=== PATIENT | male | born 1965 | race Caucasian/White ===

== ENCOUNTER 2017-08-09 11:34 | Outpatient (CLI) ==
[2016-06-19 08:21] VITALS: BMI 29.5
[2017-08-09 11:48] LABS: HEMATOCRIT 41.9 % (42.0-52.0); HEMOGLOBIN 13.7 g/dl (14.0-18.0); MEAN CORPUSCULAR HGB CONC 32.7 (31.8-35.4); MEAN CORPUSCULAR VOLUME 88.8 fl (80.0-94.0); RED BLOOD COUNT 4.72 10^6/ul (4.70-6.10); WHITE BLOOD COUNT 7.98 K/ul (4.2-10.2)
[2017-08-09 12:04] LABS: BUN/CREATININE RATIO 8.57; CALCIUM 9.9 mg/dL (8.2-10.2); CREATININE 1.05 mg/dL (0.60-1.10)
[2017-08-10 15:15] LABS: URINE CREATININE 184.6 mg/dL (Not Estab.); URINE MALB/CR RATIO 47.7 mg/g creat (0.0-30.0)
== END 2017-08-09 11:35 | disposition home or self-care (01) ==
LOC: LAB 11:34
PROVIDERS: ATTEND Internal Medicine Nephrology
DX: N18.1 Chronic kidney disease, stage 1 (principal)
CPT/HCPCS: 36415; 80048; 82043; 85027

== ENCOUNTER 2017-09-16 16:38 | Emergency (ER) ==
[2017-09-16 16:49] VITALS: BP 164/88; TEMP 96.5; BMI 33.3
--- NOTE | 2017-09-16 17:30 | CT ---
EXAM: CT cervical spine without contrast HISTORY: Fall COMPARISON: None TECHNIQUE: CT cervical spine performed without intravenous contrast. Coronal and sagittal reformatt ed images obtained. FINDINGS: Vertebral bodies normal in height. No fracture. No subluxation. Bulky multilevel anteri or osteophyte formation. Multilevel facet and uncovertebral hypertrophy. Degenerative changes cause varying degrees of mild and moderate multilevel central canal and mild moderate multilevel bilateral neural foraminal narrowing. Prevertebral soft tissues appear normal. IMPRESSION: 1. No fracture or subluxation. 2. Chronic discogenic degenerative disease and facet arthrosis.
--- NOTE | 2017-09-16 17:59 | CT ---
EXAM: CT lumbar spine without intravenous contrast 09/16/2017. Sagittal and coronal reformatted mary ges obtained HISTORY: Pain COMPARISON: 10/22/2013 FINDINGS: Normal anatomic alignment is maintained. Vertebral bodies appear intact without fracture. The facet joints align normally. There is no fracture or subluxation at any level. There is a large posterior disc bulge/osteophyte complex at L3-L4. This causes triangulation of the s flavio canal. There is moderate right-sided neural foraminal stenosis at L3-L4. Posterior disc bulge causes triangulation of the spinal canal at L4-L5 with mild bilateral neural for aminal stenosis. There is prominent facet arthropathy at L5-S1. This causes mild right neural foraminal stenosis. IMPRESSION: 1. Normal anatomic alignment. There is no acute osseous abnormality. 2. Chronic degenerative disc disease. Chronic hypertrophic facet arthropathy. 3. Multilevel narrowing of the spinal canal and neural foramen as described above. Outpatient MRI c ould be obtained for further evaluation if clinically indicated.
--- NOTE | 2017-09-16 18:10 | CT ---
EXAM: CT thoracic spine without intravenous contrast 09/16/2017. Sagittal and coronal reformatted i mages obtained HISTORY: Fall COMPARISON: None. FINDINGS: Normal anatomic alignment is maintained within the thoracic spine. Vertebral bodies appea r intact. The facet joints align normally. There is no evidence of fracture or subluxation at any level. Multilevel chronic degenerative endplate change. There is no bony encroachment upon the spinal canal. IMPRESSION: No acute osseous abnormality of the thoracic spine.
--- NOTE | 2017-09-16 18:13 | ED.PDOC ---
General ED Provider: Dr. SHONA CANDELARIA Chief Complaint: Fall Stated Complaint: FALL Time Seen by Physician: 16:44 (SEEN WITH BROCK ON ARRIVAL AND LATER ON 6:10) Mode of Arrival: Walk-In Information Source: Patient, Family Exam Limitations: No limitations Primary Care Provider: VIRGINIA CANNON Nursing and Triage Documentation Reviewed and Agree: Yes Reviewed sepsis parameters & appropriate labs ordered?: Yes System Inflammatory Response Syndrome: Not Applicable Sepsis Protocol: For patient's 13 years and over: Temp is 96.8 and below OR 101 and greater Pulse >90 BPM Resp >20/minute Acutely Altered Mental Status Are patient's symptoms suggestive of a new infection, such as: -Pneumonia -Skin, Soft Tissue -Endocarditis -UTI -Bone, Joint Infection -Implantable Device -Acute Abdominal Infection -Wound Infection -Meningitis -Blood Stream Catheter Infection -Unknown System Inflammatory Response Syndrome: Not Applicable Trauma/Injury Complaint Exam - Trauma Complaint/Exam Location of Pain or Injury: Reports: Neck, Back. Denies: Head, Scalp, Face Mechanism of Injury: Reports: Fall Onset/Duration: 5HR Symptoms Are: Still present Timing of Treatment: Hours Initial Severity: Moderate Current Severity: Mild Character: Reports: Aching Aggravating: Reports: None Alleviating: Reports: Rest Associated Signs and Symptoms: Denies: LOC, Confusion, Memory loss, Lethargy, Vomiting, Bleeding, Bruising, Swelling, Extremity disuse, Painful respiration, Hoarseness, Dysphagia, Hemoptysis, Significant blood loss Penetrating Injury Risk Factors: Reports: None Nexus Low Risk Criteria: No post-midline CS tender, No evidence of intoxicat., No Altered LOC, No focal neuro deficit, No distracting injuries Glascow Coma Scale (see protocol): 15 Differential Diagnoses: Fracture, Sprain, Strain Review of Systems - Review Of Systems Constitutional: Reports: No symptoms Eyes: Reports: No symptoms Ears, Nose, Mouth, Throat: Reports: No symptoms Respiratory: Reports: No symptoms Cardiac: Reports: No symptoms GI: Reports: No symptoms : Reports: No symptoms Musculoskeletal: Reports: Neck pain Skin: Reports: No symptoms Neurological: Reports: No symptoms Endocrine: Reports: No symptoms Hematologic/Lymphatic: Reports: No symptoms All Other Systems: Reviewed and Negative Past Medical History - Past Medical History Previously Healthy: Yes Endocrine: Reports: None Cardiovascular: Reports: None Respiratory: Reports: None Hematological: Reports: None Gastrointestinal: Reports: None Genitourinary: Reports: None Neuro/Psych: Reports: None Musculoskeletal: Reports: None Cancer: Reports: None - Surgical History General Surgical History: Reports: None - Family History Family History: Reports: None - Social History Smoking Status: Never smoker, Chews tobacco Hx Substance Use: No Alcohol Screening: None - Immunizations Tetanus Shot up to Date: Yes Physical Exam - Physical Exam Appearance: Well-appearing, No pain distress, Well-nourished Eyes: SUNSHINE, EOMI, Conjunctiva clear ENT: Ears normal, Nose normal, Oropharynx normal Respiratory: Airway patent, Breath sounds clear, Breath sounds equal, Respirations nonlabored Cardiovascular: RRR, Pulses normal, No rub, No murmur GI/: Soft, Nontender, No masses, Bowel sounds normal, No Organomegaly Musculoskeletal: Normal strength, ROM intact, No edema, No calf tenderness Skin: Warm, Dry, Normal color Neurological: Sensation intact, Motor intact, Reflexes intact, Cranial nerves intact, Alert, Oriented Psychiatric: Affect appropriate, Mood appropriate Interpretation - Radiology Interpretation Radiology Interpretation By: Radiologist Radiology Results: No acute changes Critical Care Note - Critical Care Note Total Time (mins): 0 Course - Course Orders, Labs, Meds: Orders Category Date Time Status CT CERVICAL SPINE W/O CONTRAST Stat RADS 09/16/17 16:[address] LUMBAR SPINE W/O CONTRAST Stat RADS 09/16/17 16:[address] THORACIC SPINE W/O CONTRAST Stat RADS 09/16/17 16:50 Completed Vital Signs: Temp Pulse Resp BP Pulse Ox 09/16/17 16:44 96.5 F L 71 20 164/88 H 93 L Departure - Departure Time of Disposition: 18:15 Disposition: HOME SELF-CARE Discharge Problem: Backache Thoracic back pain Qualifiers: Chronicity: acute Back pain laterality: midline Qualified Code(s): M54.6 - Pain in thoracic spine Instructions: Low Back Strain (GEN), Back Pain (ED) Condition: Good Pt referred to PMD for follow-up: Yes Additional Instructions: Please call your Family Physician as soon as possible to schedule a follow-up appointment. Allergies/Adverse Reactions: Allergies No Known Drug Allergies Allergy (Unverified 04/05/17 10:14) Home Medications: Ambulatory Orders Aspirin [Aspirin Chewable] 81 mg PO DAILY 04/05/13 Insulin Detemir [Levemir Flexpen] 40 unit SQ BID 04/05/13 Metformin HCl [Metformin HCl ER] 500 mg PO DAILY 04/05/13 Metoprolol Tartrate [Lopressor] 25 mg PO DAILY 04/05/13 Multivitamin 1 cap PO DAILY 04/05/13 Allopurinol 100 mg PO DAILY 04/06/13 Metformin HCl 1,000 mg PO BID 10/04/13 Hydrocodone/Acetaminophen [[place] 10-325 Tablet] 1 each PO Q8HR #10 tablet
== END 2017-09-16 18:35 | disposition home or self-care (01) ==
LOC: ED 16:38
DX: M54.6 Pain in thoracic spine (principal); M54.2 Cervicalgia; W19.XXXA Unspecified fall, initial encounter; Z72.0 Tobacco use
CPT/HCPCS: 99283

== ENCOUNTER 2017-12-21 10:36 | Emergency (ER) ==
[2017-12-21 10:41] VITALS: BP 170/95; TEMP 98.6; BMI 30.4
[2017-12-21] MEDS ORDERED: DILAUDID 1 MG/ML SYRINGE IM STA (10:50)
[2017-12-21] MEDS ORDERED: MOTRIN PO STA (10:50)
[2017-12-21] MEDS ORDERED: DEMEROL 50 MG/ML VIAL IVP STA (10:53)
--- NOTE | 2017-12-21 10:55 | ED.PDOC ---
General ED Provider: Dr. JEYSON BONNER Chief Complaint: Elbow Pain/Injury Stated Complaint: Patient is a 52 year old female who comes to ER after a ground level fall to the ground with injury to the left Elbow and left shoulder. Denies hitting his head. Denies any loss of conciounsness. Time Seen by Physician: 10:52 Mode of Arrival: Walk-In Information Source: Patient Exam Limitations: No limitations Primary Care Provider: VIRGINIA CANNON Nursing and Triage Documentation Reviewed and Agree: Yes Reviewed sepsis parameters & appropriate labs ordered?: No System Inflammatory Response Syndrome: Not Applicable Sepsis Protocol: For patient's 13 years and over: Temp is 96.8 and below OR 101 and greater Pulse >90 BPM Resp >20/minute Acutely Altered Mental Status Are patient's symptoms suggestive of a new infection, such as: -Pneumonia -Skin, Soft Tissue -Endocarditis -UTI -Bone, Joint Infection -Implantable Device -Acute Abdominal Infection -Wound Infection -Meningitis -Blood Stream Catheter Infection -Unknown System Inflammatory Response Syndrome: Not Applicable Musculoskeletal Complaint Exam - Elbow Pain Complaint/Exam Mechanism of Injury: Reports: Trauma (Ground level fall. ) Onset/Duration: 1 hour Symptoms Are: Still present Onset of Pain: Reports: Immediate Initial Severity: Severe Current Severity: Severe Location: Reports: Discrete (left elbow and shoulder ) Alleviating: Reports: None Aggravating: Reports: Movement, Twisting, Pulling Associated Signs and Symptoms: Reports: Swelling. Denies: Weakness, Numbness Related Surgical History: Reports: None Elbow Findings: Present: Swelling Tenderness: Present: Lateral Condyle Limited Range of Motion: Present: Extension Differential Diagnoses: Infection, Sprain, Strain Review of Systems - Review Of Systems Constitutional: Reports: No symptoms Eyes: Reports: No symptoms Ears, Nose, Mouth, Throat: Reports: No symptoms Respiratory: Reports: No symptoms Cardiac: Reports: No symptoms GI: Reports: No symptoms : Reports: No symptoms Musculoskeletal: Reports: Joint pain (left Elbow pain and swelling, left shoulder pain and swelling ) Skin: Reports: No symptoms Neurological: Reports: Anxiety Endocrine: Reports: No symptoms Hematologic/Lymphatic: Reports: No symptoms All Other Systems: Reviewed and Negative Past Medical History - Past Medical History Previously Healthy: Yes Endocrine: Reports: None Cardiovascular: Reports: None Respiratory: Reports: None Hematological: Reports: None Gastrointestinal: Reports: None Genitourinary: Reports: None Neuro/Psych: Reports: None Musculoskeletal: Reports: None Cancer: Reports: None - Surgical History General Surgical History: Reports: None - Family History Family History: Reports: None - Social History Smoking Status: Never smoker, Chews tobacco Hx Substance Use: No Alcohol Screening: None Physical Exam - Physical Exam Appearance: Ill-appearing Ill-appearing: Moderate Pain Distress: Severe Respiratory: Airway patent, Breath sounds clear, Breath sounds equal, Respirations nonlabored Cardiovascular: RRR, Pulses normal, No rub, No murmur Musculoskeletal: Limited ROM, Edema Skin: Warm, Dry Neurological: Sensation intact Psychiatric: Anxious Interpretation - Radiology Interpretation Radiology Interpretation By: Radiologist Radiology Results: Negative Exam Interpreted: Other (Elbow and shoulder x ray ) Critical Care Note - Critical Care Note Total Time (mins): 0 Course - Course Orders, Labs, Meds: Orders Category Date Time Status ED APPLY ICE AFFECTED AREA .ONCE EMERGENCY 12/21/17 10:50 Active Shoulder immobilizer [ED SPLINT APPLICATION] .ONCE EMERGENCY 12/21/17 10:50 Active Ibuprofen [Motrin] MEDS 12/21/17 10:50 Discontinued 800 mg PO ONCE STA Meperidine HCl/Pf [Demerol 50 mg/ml Vial] MEDS 12/21/17 11:29 Discontinued 50 mg IM ONCE STA Promethazine HCl [Phenergan 25 mg/ml Vial] MEDS 12/21/17 11:00 Discontinued 25 mg IM ONCE STA ELBOW, LEFT MIN 3 VIEWS Stat RADS 12/21/17 10:58 Completed SHOULDER, LEFT MIN 2V Stat RADS 12/21/17 10:50 Completed Medications Discontinued Medications Generic Name Dose Route Start Last Admin Trade Name Freq PRN Reason Stop Dose Admin Ibuprofen 800 mg 12/21/17 10:50 12/21/17 11:29 Motrin PO 12/21/17 10:51 800 mg ONCE STA Administration Meperidine HCl 50 mg 12/21/17 11:29 12/21/17 11:32 Demerol 50 Mg/Ml Vial IM 12/21/17 11:30 50 mg ONCE STA Administration Promethazine HCl 25 mg 12/21/17 11:00 12/21/17 11:30 Phenergan 25 Mg/Ml Vial IM 12/21/17 11:01 25 mg ONCE STA Administration Vital Signs: Temp Pulse Resp BP Pulse Ox 12/21/17 10:37 98.6 F 77 16 170/95 H 95 Departure - Departure Time of Disposition: 11:34 Disposition: HOME SELF-CARE Discharge Problem: Sprain of elbow, left Qualifiers: Encounter type: initial encounter Qualified Code(s): S53.402A - Unspecified sprain of left elbow, initial encounter Sprain of shoulder, left Qualifiers: Encounter type: initial encounter Shoulder sprain type: unspecified sprain Qualified Code(s): S43.402A - Unspecified sprain of left shoulder joint, initial encounter Instructions: Elbow Sprain (ED), Shoulder Sprain (ED) Condition: Stable Pt referred to PMD for follow-up: Yes IPMP verified?: No Additional Instructions: Take medications as needed for pain Follow up with PCP in 3 days Prescriptions: Hydrocodone/Acetaminophen [[place] 5-325 Tablet] 1 tab PO Q6HR PRN #12 tablet PRN Reason: PAIN Ibuprofen [Motrin] 600 mg PO Q6H PRN #30 tablet PRN Reason: Analgesia Allergies/Adverse Reactions: Allergies No Known Drug Allergies Allergy (Verified 12/21/17 10:41) Home Medications: Ambulatory Orders Aspirin [Aspirin Chewable] 81 mg PO DAILY 04/05/13 Insulin Detemir [Levemir Flexpen] 40 unit SQ BID 04/05/13 Metformin HCl [Metformin HCl ER] 500 mg PO DAILY 04/05/13 Metoprolol Tartrate [Lopressor] 25 mg PO DAILY 04/05/13 Multivitamin 1 cap PO DAILY 04/05/13 Allopurinol 100 mg PO DAILY 04/06/13 Metformin HCl 1,000 mg PO BID 10/04/13 Hydrocodone/Acetaminophen [[place] 5-325 Tablet] 1 tab PO Q6HR PRN #12 tablet Ibuprofen [Motrin] 600 mg PO Q6H PRN #30 tablet 12/21/17 Disposition Discussed With: Patient
[2017-12-21] MEDS ORDERED: PHENERGAN 25 MG/ML VIAL IM STA (11:00)
--- NOTE | 2017-12-21 11:16 | DI ---
EXAM: Three views of the left elbow HISTORY: Trauma and swelling. COMPARISON: Left elbow x-rays 03/04/2008 FINDINGS: There is soft tissue swelling overlying the olecranon with underlying osteophyte. There is no visualized fracture or dislocation. There are no displaced fat pads. IMPRESSION: Soft tissue swelling overlying the olecranon with no displaced fracture or dislocation.
--- NOTE | 2017-12-21 11:28 | DI ---
EXAM: Three views of the left shoulder HISTORY: Limited range of motion and pain. COMPARISON: Left shoulder x-ray 03/04/2008 FINDINGS: There is no cortical irregularity or displaced fracture. There is mild degenerative diseas e of the acromioclavicular joint. There is no lytic or blastic lesion identified. Soft tissues are unremarkable. Joint spaces are maintained. IMPRESSION: No acute abnormality or displaced fracture of the left shoulder.
[2017-12-21] MEDS ORDERED: DEMEROL 50 MG/ML VIAL IM STA (11:29)
== END 2017-12-21 11:53 | disposition home or self-care (01) ==
LOC: ED 10:36
DX: S53.402A Unspecified sprain of left elbow, initial encounter (principal); S43.402A Unspecified sprain of left shoulder joint, initial encounter; W19.XXXA Unspecified fall, initial encounter; Z72.0 Tobacco use
CPT/HCPCS: 96372; 99283

== ENCOUNTER 2018-04-02 14:57 | Emergency (ER) ==
[2018-04-02] MEDS ORDERED: SODIUM CHLORIDE 1,000 ML IV STA ×2 (15:01→16:20)
[2018-04-02 15:06] VITALS: BP 138/82; TEMP 96.7; BMI 33.1
--- NOTE | 2018-04-02 15:48 | ED.PDOC ---
General ED Provider: Dr. SHONA CANDELARIA Chief Complaint: Hyperthermia Stated Complaint: weakness Time Seen by Physician: 15:00 (generalized weakness on the floor was working out doors all day long) Mode of Arrival: Ambulance Information Source: Patient, EMT Exam Limitations: No limitations Primary Care Provider: VIRGINIA CANNON Nursing and Triage Documentation Reviewed and Agree: Yes Does patient meet sepsis criteria?: No If yes, has appropriate treatment been initiated?: No System Inflammatory Response Syndrome: Not Applicable Sepsis Protocol: For patient's 13 years and over: Temp is 96.8 and below OR 101 and greater Pulse >90 BPM Resp >20/minute Acutely Altered Mental Status Are patient's symptoms suggestive of a new infection, such as: -Pneumonia -Skin, Soft Tissue -Endocarditis -UTI -Bone, Joint Infection -Implantable Device -Acute Abdominal Infection -Wound Infection -Meningitis -Blood Stream Catheter Infection -Unknown Neurological Complaint Exam - Weakness Complaint/Exam Last Known Well: today suddenly became weak was working out doors no focal signs Onset: Sudden Duration: few min and rapid recovery Symptoms Are: Resolved Episodes Lasting: Minutes Initial Severity: Moderate Current Severity: Moderate Character: Reports: Lightheaded, Weak Aggravating: Reports: None Alleviating: Reports: Rest Associated Signs and Symptoms: Denies: Nausea, Vomiting, Diaphoresis, Tinnitus, Chest pain, Short of air, Palpitations, Unsteady gait, GI blood loss, Visual changes, Decreased oral intake, Change in medication, Change in diet, OTC meds, Loss of balance Cardiac Risk Factors: Reports: Hypertension, Diabetes CVA Risk Factors: Reports: None, Diabetes, Hypertension Related Surgical History: Reports: None JVD Present: No Carotid Bruit Present: No Glascow Coma Scale (see protocol): 15 Nystagmus Present: Yes Gag Reflex Present: No Meningeal Signs Positive: No Focal Weakness: Present: None Focal Sensory Loss: Present: None Gait: Normal Babinski Sign: Negative Right, Negative Left Differential Diagnoses: Dysrhythmia, Medication reaction, Metabolic abnormalities, Vasovagal reaction Quality Indicators for Cardiac Chest Pain: EKG in 10min. Quality Indicators for AMI: EKG in 10min. Review of Systems - Review Of Systems Constitutional: Reports: Malaise, Weakness Eyes: Reports: No symptoms Ears, Nose, Mouth, Throat: Reports: No symptoms Respiratory: Reports: No symptoms Cardiac: Reports: No symptoms GI: Reports: No symptoms : Reports: No symptoms Musculoskeletal: Reports: No symptoms Skin: Reports: No symptoms Neurological: Reports: No symptoms Endocrine: Reports: No symptoms Hematologic/Lymphatic: Reports: No symptoms All Other Systems: Reviewed and Negative Past Medical History - Past Medical History Previously Healthy: Yes Endocrine: Reports: None Cardiovascular: Reports: None Respiratory: Reports: None Hematological: Reports: None Gastrointestinal: Reports: None Genitourinary: Reports: None Neuro/Psych: Reports: None Musculoskeletal: Reports: None Cancer: Reports: None - Surgical History General Surgical History: Reports: None - Family History Family History: Reports: None - Social History Smoking Status: Never smoker, Chews tobacco Hx Substance Use: No Alcohol Screening: None Physical Exam - Physical Exam Appearance: Well-appearing, No pain distress, Well-nourished Eyes: SUNSHINE, EOMI, Conjunctiva clear ENT: Ears normal, Nose normal, Oropharynx normal Respiratory: Airway patent, Breath sounds clear, Breath sounds equal, Respirations nonlabored Cardiovascular: RRR, Pulses normal, No rub, No murmur GI/: Soft, Nontender, No masses, Bowel sounds normal, No Organomegaly Musculoskeletal: Normal strength, ROM intact, No edema, No calf tenderness Skin: Warm, Dry, Normal color Neurological: Sensation intact, Motor intact, Reflexes intact, Cranial nerves intact, Alert, Oriented Psychiatric: Affect appropriate, Mood appropriate Interpretation - Auto Body Straightener Rate: Normal Rhythm: Sinus Ectopy: None - EKG Interpretation Rate: Normal Rhythm: Sinus Ectopy: None [place]: NL Re-Evaluation - Re-Evaluation Time of Re-Evaluation: 16:56 Status: Improved Vital Signs Stable: Yes Pain Level: 0 Appearance: NAD Lungs: Clear Skin: Warm and Dry Neuro: Alert and Oriented X3 CV: RRR Critical Care Note - Critical Care Note Total Time (mins): 0 Course - Course Hematology/Chemistry: 04/02/18 15:08 04/02/18 15:08 Orders, Labs, Meds: Lab Review 04/02/18 04/02/18 15:08 15:08 WBC 8.23 RBC 4.48 L Hgb 13.2 L Hct 39.8 L MCV 88.8 MCH 29.5 MCHC 33.2 RDW Coeff of Maria D 13.2 Plt Count 314 Immature Gran % (Auto) 0.5 Neut % (Auto) 58.3 Lymph % (Auto) 29.4 [place] % (Auto) 6.8 Eos % (Auto) 4.3 Baso % (Auto) 0.7 Immature Gran # (Auto) 0.0 Neut # (Auto) 4.8 Lymph # (Auto) 2.4 [place] # (Auto) 0.6 Eos # (Auto) 0.4 Baso # (Auto) 0.1 Sodium 141 Potassium 4.0 Chloride 107 Carbon Dioxide 21 Anion Gap 17.0 BUN 10 Creatinine 1.12 H Estimated GFR (MDRD) 68.00 BUN/Creatinine Ratio 8.92 Glucose 195 H Calcium 9.5 Total Bilirubin 0.5 AST 27 ALT 26 Alkaline Phosphatase 68 Total Creatine Kinase 94 Troponin I < 0.0100 Total Protein 7.5 Albumin 3.8 Globulin 3.7 Albumin/Globulin Ratio 1.03 TSH 1.695 Free T4 0.90 Orders Category Date Time Status EKG-(ED ONLY) Stat CARDIO 04/02/18 15:01 Completed ED IV/MEDIPORT/POWERPORT .ONCE EMERGENCY 04/02/18 15:00 Active CBC W/ AUTO DIFF Stat LAB 04/02/18 15:08 Completed COMPREHENSIVE METABOLIC PANEL Stat LAB 04/02/18 15:08 Completed CREATINE KINASE Stat LAB 04/02/18 15:08 Completed FREE T4 (FREE THYROXINE) Stat LAB 04/02/18 15:08 Completed THYROID STIMULATING HORMONE Stat LAB 04/02/18 15:08 Completed TROPONIN I Stat LAB 04/02/18 15:08 Completed 0.9 % Sodium Chloride [Saline Flush] MEDS 04/02/18 15:00 Active 1 syr IVF PRN PRN Sodium Chloride 0.9% [Sodium Chloride] 1,000 ml MEDS 04/02/18 15:[address] HEAD W/O CONTRAST Stat RADS 04/02/18 15:39 Completed Medications Generic Name Dose Route Start Last Admin Trade Name Freq PRN Reason Stop Dose Admin Sodium Chloride 1 syr 04/02/18 15:00 04/02/18 15:15 Saline Flush IVF 1 syr PRN PRN Administration To flush IV Discontinued Medications Generic Name Dose Route Start Last Admin Trade Name Freq PRN Reason Stop Dose Admin Sodium Chloride 1,000 mls @ 1,000 mls/hr 04/02/18 15:01 04/02/18 15:15 Sodium Chloride IV 04/02/18 16:00 1,000 mls/hr BOLUS STA Administration Vital Signs: Temp Pulse Resp BP Pulse Ox 04/02/18 14:58 96.7 F L 85 22 138/82 95 Departure - Departure Time of Disposition: 16:56 (NO ACUTE EVENTS WHILE IN ED ) Disposition: HOME SELF-CARE Discharge Problem: Intolerant of heat, Generalized weakness Instructions: Weakness (ED) Condition: Good Pt referred to PMD for follow-up: Yes IPMP verified?: No Additional Instructions: Please call your Family Physician as soon as possible to schedule a follow-up appointment. Allergies/Adverse Reactions: Allergies No Known Drug Allergies Allergy (Verified 04/02/18 15:08) Home Medications: Ambulatory Orders Aspirin [Aspirin Chewable] 81 mg PO DAILY 04/05/13 Insulin Detemir [Levemir Flexpen] 40 unit SQ BID 04/05/13 Metformin HCl [Metformin HCl ER] 500 mg PO DAILY 04/05/13 Metoprolol Tartrate [Lopressor] 25 mg PO DAILY 04/05/13 Multivitamin 1 cap PO DAILY 04/05/13 Allopurinol 100 mg PO DAILY 04/06/13 Metformin HCl 1,000 mg PO BID 10/04/13 Ibuprofen [Motrin] 600 mg PO Q6H PRN #30 tablet 12/21/17 Disposition Discussed With: Patient, Family
--- NOTE | 2018-04-02 16:21 | CT ---
EXAM: CT BRAIN HISTORY: Altered mental status TECHNIQUE: CT brain without intravenous contrast. 5-mm axial sections with Reformations. COMPARISON: 04/05/2013 FINDINGS: Right frontal and middle cranial fossa encephalomalacia suggesting old infarction or other injury. T here is generalized atrophy. There is mild to moderate periventricular and deep white matter low atte nuation which although nonspecific is suggestive of chronic microvascular ischemic change. These fin dings are stable. Brain otherwise is unremarkable without evidence of hemorrhage or large vessel distribution recent is chemic infarction. There is no suggestion of acute hydrocephalus or subdural fluid collection. No m ass or mass effect. Cranium is within normal limits. Mastoid processes are aerated. The visualized paranasal sinuses a re clear. IMPRESSION: No acute intracranial process.
== END 2018-04-02 17:06 | disposition home or self-care (01) ==
LOC: ED 14:57
DX: T67.0XXA Heatstroke and sunstroke, initial encounter (principal); R53.1 Weakness; I10 Essential (primary) hypertension; E11.9 Type 2 diabetes mellitus without complications; Z72.0 Tobacco use
CPT/HCPCS: 36415; 80053; 82550; 84439; 84443; 84484; 85025; 93005; 93010; 96360; 96361; 99283

== ENCOUNTER 2018-06-30 19:51 | Emergency (ER) ==
[2018-06-30 19:52] VITALS: BMI 30.4
[2018-06-30 19:55] VITALS: BP 158/102; TEMP 98.4
--- NOTE | 2018-06-30 20:30 | ED.PDOC ---
General ED Provider: Dr. VIRGINIA CANNON-ER Chief Complaint: Fall Stated Complaint: i tripped over a dog Time Seen by Physician: 19:55 Mode of Arrival: Walk-In Information Source: Patient Exam Limitations: No limitations Primary Care Provider: VIRGINIA CANNON Nursing and Triage Documentation Reviewed and Agree: Yes Does patient meet sepsis criteria?: No System Inflammatory Response Syndrome: Not Applicable Sepsis Protocol: For patient's 13 years and over: Temp is 96.8 and below OR 101 and greater Pulse >90 BPM Resp >20/minute Acutely Altered Mental Status Are patient's symptoms suggestive of a new infection, such as: -Pneumonia -Skin, Soft Tissue -Endocarditis -UTI -Bone, Joint Infection -Implantable Device -Acute Abdominal Infection -Wound Infection -Meningitis -Blood Stream Catheter Infection -Unknown Trauma/Injury Complaint Exam - Trauma Complaint/Exam Location of Pain or Injury: Reports: Neck, LUE Mechanism of Injury: Reports: Fall Symptoms Are: Still present Timing of Treatment: Immediate Initial Severity: Moderate Character: Reports: Dull Aggravating: Reports: Movement, Palpation Associated Signs and Symptoms: Denies: LOC, Confusion, Memory loss, Lethargy, Vomiting, Bleeding, Bruising, Swelling, Extremity disuse, Painful respiration, Hoarseness, Dysphagia, Hemoptysis, Significant blood loss Penetrating Injury Risk Factors: Reports: None Glascow Coma Scale (see protocol): 15 Compartment Syndrome Risk Factors: Present: Pain Trauma Findings: Present: Limited ROM. Absent: [place] eyes, Hemotympanum, Nasal deformity, Dental tenderness, Dental injury, Dental malocclusion, Neck tenderness, Neck spasm, SubQ Air, Crepitus, Airway obstructed, Trachea displaced , Labored respirations, Decreased breath sounds, Muffled heart sounds, Weak pulses, Absent pulses, Abdominal distention, Pelvic tenderness, Pelvic instability, Perineal blood, Meatal blood, Abnormal rectal tone, Prostate pos. abnormal, Heme positive, Gross blood, Back tenderness, Back malalignment, Agitated, Uncooperative Skin Findings: Present: Normal findings Differential Diagnoses: Fracture, Sprain, Strain Review of Systems - Review Of Systems Constitutional: Reports: No symptoms Eyes: Reports: No symptoms Ears, Nose, Mouth, Throat: Reports: No symptoms Respiratory: Reports: No symptoms Cardiac: Reports: No symptoms GI: Reports: No symptoms : Reports: No symptoms Musculoskeletal: Reports: Joint pain, Muscle pain Skin: Reports: No symptoms Neurological: Reports: No symptoms Endocrine: Reports: No symptoms Hematologic/Lymphatic: Reports: No symptoms All Other Systems: Reviewed and Negative Past Medical History - Past Medical History Previously Healthy: Yes Endocrine: Reports: None Cardiovascular: Reports: None Respiratory: Reports: None Hematological: Reports: None Gastrointestinal: Reports: None Genitourinary: Reports: None Neuro/Psych: Reports: None Musculoskeletal: Reports: None Cancer: Reports: None - Surgical History General Surgical History: Reports: None - Family History Family History: Reports: None - Social History Smoking Status: Never smoker, Chews tobacco Hx Substance Use: No Alcohol Screening: None Physical Exam - Physical Exam Appearance: Well-appearing, No pain distress, Well-nourished Pain Distress: Mild Eyes: SUNSHINE ENT: Ears normal, Nose normal, Oropharynx normal Neck: Supple Respiratory: Airway patent, Breath sounds clear, Breath sounds equal, Respirations nonlabored Cardiovascular: RRR, Pulses normal, No rub, No murmur GI/: Soft, Nontender, No masses, Bowel sounds normal, No Organomegaly Musculoskeletal: Limited ROM Skin: Warm, Dry, Normal color Neurological: Sensation intact, Motor intact, Reflexes intact, Cranial nerves intact, Alert, Oriented Psychiatric: Affect appropriate, Mood appropriate Interpretation - Radiology Interpretation Radiology Interpretation By: Radiologist Radiology Results: Negative Exam Interpreted: CT Scan Critical Care Note - Critical Care Note Total Time (mins): 0 Course - Course Orders, Labs, Meds: Orders Category Date Time Status Hydrocodone Bit/Acetaminophen [[place] 5-325] MEDS 06/30/18 21:02 Stat 1 tab PO ONCE STA CT CERVICAL SPINE W/O CONTRAST Stat RADS 06/30/18 20:[address] HEAD W/O CONTRAST Stat RADS 06/30/18 20:[address] SHOULDER LEFT W/O CONTRAST Stat RADS 06/30/18 20:00 Completed Vital Signs: Temp Pulse Resp BP Pulse Ox 06/30/18 19:52 98.4 F 88 18 158/102 H 97 Departure - Departure Time of Disposition: 21:02 Disposition: HOME SELF-CARE Discharge Problem: Shoulder pain, left Qualifiers: Chronicity: acute Qualified Code(s): M25.512 - Pain in left shoulder Instructions: Rotator Cuff Injury (ED) Condition: Good Pt referred to PMD for follow-up: Yes IPMP verified?: No Additional Instructions: norco 5mg q 6hrs prn pain #15---see me in a few days for mri of shoulder if not improving Allergies/Adverse Reactions: Allergies No Known Drug Allergies Allergy (Verified 06/30/18 19:55) Home Medications: Ambulatory Orders Aspirin [Aspirin Chewable] 81 mg PO DAILY 04/05/13 Insulin Detemir [Levemir Flexpen] 40 unit SQ BID 04/05/13 Metformin HCl [Metformin HCl ER] 500 mg PO DAILY 04/05/13 Metoprolol Tartrate [Lopressor] 25 mg PO DAILY 04/05/13 Multivitamin 1 cap PO DAILY 04/05/13 Allopurinol 100 mg PO DAILY 04/06/13 Metformin HCl 1,000 mg PO BID 10/04/13 Ibuprofen [Motrin] 600 mg PO Q6H PRN #30 tablet 12/21/17 Disposition Discussed With: Patient, Family
--- NOTE | 2018-06-30 20:35 | CT ---
EXAM: CT cervical spine without contrast HISTORY: Fall TECHNIQUE: Multi-slice transaxial helical with coronal and sagittal reformatted views. COMPARISON: CT cervical spine from 09/16/2017 FINDINGS: The intervertebral joint spaces are mildly narrowed diffusely. The vertebrae have normal h eight and alignment. No acute fractures or lithesis are observed. The prevertebral soft tissues have normal width. The facet alignment is appropriate. No cervical ribs are appreciated. Segmental analysis: C2-C3: A minimal disc spur complex effaces the thecal sac. The central canal diameter is maintained. There is minimal left neural foramen stenosis secondary to facet/uncovertebral joint hypertrophy. The right neural foramen is maintained. C3-C4: A disc spur complex effaces the thecal sac. The central canal diameter is mildly narrowed. T he facets and uncovertebral joints are hypertrophic with moderate left and mild right neural foramen stenosis. C4-C5: A mild disc protrusion effaces the thecal sac. The central canal diameter is mildly narrowed. The facets and uncovertebral joints are hypertrophic with moderate left and mild right neural anil en stenosis. C5-C6: The disc spur complex effaces the cord with mild central canal stenosis. The facets and uncov ertebral joints are hypertrophic with mild bilateral neural from stenosis. C6-C7: A disc spur complex effaces the thecal sac. The central canal diameter is maintained. The fa cets and uncovertebral joints are hypertrophic with moderate left neural foramen stenosis. The right neural foramen is maintained. C7-T1: No significant disc herniation, central canal stenosis, or neural foramen stenosis. IMPRESSION: 1. No acute fracture or lithesis. 2. Mild diffuse degenerative disc disease. 3. Multilevel central canal and neural foramen stenosis as detailed.
--- NOTE | 2018-06-30 20:36 | CT ---
EXAM: CT head without contrast. HISTORY: Fall. PROCEDURE: Contiguous axial CT images of the head without contrast with coronal and sagittal reforma ts. FINDINGS: There is diffuse cerebral atrophy. The ventricles and basal cisterns are normal in size an d configuration. No evidence of mass or midline shift. No intracranial hemorrhage or evidence of ne w large vessel infarct. There are old right frontal and right temporal lobe infarcts. There are cafeteria or lunchroom checker sindhu small vessel ischemic changes in the white matter. No extra-axial fluid collection. There is dur al calcification along the anterior falx. The paranasal sinuses and mastoid air cells are normal in a ppearance. No skull fracture. Impression: No intracranial hemorrhage or skull fracture. 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 Chronic small vessel ischemic changes. Diffuse cerebral atrophy.
--- NOTE | 2018-06-30 21:00 | CT ---
EXAM: CT of the left shoulder without contrast TECHNIQUE: Helical axial CT of the left shoulder was performed without contrast with coronal and sagi ttal reconstructions. Separate work station 3-D renderings were also performed. COMPARISON: Left shoulder series from 12/21/2017 HISTORY: Trauma FINDINGS: There is no fracture or dislocation. Alignment is anatomic. The glenoid process is intact with no bony Bankart lesion. The proximal humerus is intact with no Hill-Sachs deformity. There is n o scapular fracture. There is no displaced rib fracture or pneumothorax. The visualized elizabeth thorax a nd soft tissues are normal. There is minimal degenerative change of the acromioclavicular joint with no separation. There is minimal degenerative change of the glenohumeral joint. IMPRESSION: 1. No acute osseous abnormality in the left shoulder.
[2018-06-30] MEDS ORDERED: NORCO 5-325 PO STA (21:02)
== END 2018-06-30 21:14 | disposition home or self-care (01) ==
LOC: ED 19:51
DX: M25.512 Pain in left shoulder (principal); M54.2 Cervicalgia; W01.0XXA Fall on same level from slipping, tripping and stumbling without subsequent striking against object, initial encounter; Z72.0 Tobacco use
CPT/HCPCS: 99283

== ENCOUNTER 2019-01-23 20:25 | Emergency (ER) ==
[2019-01-23 20:33] VITALS: TEMP 99.4; BMI 30.8
--- NOTE | 2019-01-23 21:11 | DI ---
Exam: Single view of the chest. Comparison: 02/02/2010. Reason for exam: Hypertension. FINDINGS: No pneumothorax, pleural effusion, or focal consolidation. The cardiac silhouette is not enlarged. The imaged osseous structures appear grossly unremarkable without acute fracture. Impression: No acute cardiopulmonary process.
--- NOTE | 2019-01-23 21:15 | CT ---
EXAM: CT scan brain without contrast. HISTORY: Hypertension weakness COMPARISON: CT scan brain 06/30/2018 FINDINGS: Contiguous axial images were obtained from skull base to the convexities without contrast utilizing 5-mm collimation. Sagittal and coronal reconstructions were imaged. The ventricles and CS F spaces are prominent compatible with age appropriate atrophy. There is periventricular hypodensity noted compatible with chronic microvascular disease. Post-infarctive encephalomalacia is seen withi n the right frontal and temporal lobes. The visualized paranasal sinuses and mastoid air cells are c lear. Atherosclerotic changes are seen involving the vertebral and cavernous internal carotid arteri es. IMPRESSION: No acute intracranial findings.
[2019-01-23] MEDS ORDERED: ZOFRAN 4 MG/2 ML IVP STA (22:23)
[2019-01-23] MEDS ORDERED: MORPHINE 2 MG/ML SYRINGE IVP STA (22:23)
--- NOTE | 2019-01-23 22:34 | CT ---
EXAM: CT of the abdomen and pelvis without contrast. HISTORY: Abdominal pain. PROCEDURE: Contiguous axial CT images of the abdomen and pelvis without contrast with coronal and sa gittal reformats. FINDINGS: There is diffuse fatty infiltration of the liver. The gallbladder is surgically absent. T he pancreas, spleen, adrenal glands and kidneys are normal in appearance. The abdominal aorta is wit hin normal limits in diameter. The appendix is normal in appearance. There is diverticulosis of the colon with no evidence of diverticulitis. No free fluid or free air in the abdomen or pelvis. The bladder is adequately filled and normal in appearance. The seminal vesicles and prostate gland are u nremarkable. There are degenerative changes in the spine. There is a 1.4 cm sclerotic lesion in the left iliac. There are enthesophytes along the posterior margin of the posterior columns of the righ t acetabulum and left acetabulum. There is stranding of the subcutaneous fat in the anterior wall of the pelvis with adjacent skin thickening consistent with cellulitis. Impression: Diverticulosis of the colon with no evidence of diverticulitis. Diffuse fatty infiltration of the liver. Cholecystectomy. Stranding of the subcutaneous fat with adjacent skin thickening in the anterior wall of the pelvis, c onsistent with cellulitis. 1.4 cm sclerotic lesion in the left iliac, probably representing a bone island. Recommend correlatio n with history to exclude metastatic disease. Degenerative changes as described.
[2019-01-23] MEDS ORDERED: VASOTEC IV IVP STA (22:56)
[2019-01-23] MEDS ORDERED: DEXTROSE 25%-WATER SYRINGE IVP ONE (23:35)
[2019-01-23] MEDS ORDERED: DEXTROSE 50%-WATER ABBOJECT ONE (23:38)
[2019-01-23] MEDS ORDERED: DEXTROSE 50%-WATER ABBOJECT IVP STA (23:40)
--- NOTE | 2019-01-24 00:11 | ED.PDOC ---
General ED Provider: Dr. VIRGINIA CANNON-ER Chief Complaint: Weakness Stated Complaint: my bs is down to the 50s Time Seen by Physician: 20:30 Mode of Arrival: Wheelchair Information Source: Patient Exam Limitations: No limitations Primary Care Provider: VIRGINIA CANNON Nursing and Triage Documentation Reviewed and Agree: Yes Does patient meet sepsis criteria?: No System Inflammatory Response Syndrome: Not Applicable Sepsis Protocol: For patient's 13 years and over: Temp is 96.8 and below OR 101 and greater Pulse >90 BPM Resp >20/minute Acutely Altered Mental Status Are patient's symptoms suggestive of a new infection, such as: -Pneumonia -Skin, Soft Tissue -Endocarditis -UTI -Bone, Joint Infection -Implantable Device -Acute Abdominal Infection -Wound Infection -Meningitis -Blood Stream Catheter Infection -Unknown Endocrine Complaint Exam - Diabetic Complication Complaint/Exam Onset/Duration: today Symptoms Are: Still present Initial Severity: Mild Current Severity: Mild Character: Confused Alleviating: Reports: Food Associated Signs and Symptoms: Denies: Decreased LOC, Polydipsia, Polyuria, Polyphagia, Weight loss, Abdominal pain, Nausea, Vomiting, Fever, Diaphoresis, Fruity breath Related History: Reports: DM 2 Cardiac Risk Factors: Reports: DM, Hypertension Acetone on Breath: No Dry Mucous Membranes: No Kussmaul Respirations: No Meningeal Signs: Yes Focal Weakness: None Focal Sensory Loss: None Gait: Normal Nystagmus Present: No Gag Reflex Present: Yes Finger to Nose: Normal Babinski Sign: Negative Right, Negative Left Heel to Toe Normal: Yes Differential Diagnoses: Hypoglycemia Review of Systems - Review Of Systems Constitutional: Reports: No symptoms Eyes: Reports: No symptoms Ears, Nose, Mouth, Throat: Reports: No symptoms Respiratory: Reports: No symptoms Cardiac: Reports: No symptoms GI: Reports: No symptoms : Reports: No symptoms Musculoskeletal: Reports: No symptoms Skin: Reports: No symptoms Neurological: Reports: No symptoms Endocrine: Reports: Excessive sweating Hematologic/Lymphatic: Reports: No symptoms All Other Systems: Reviewed and Negative Past Medical History - Past Medical History Previously Healthy: Yes Endocrine: Reports: None Cardiovascular: Reports: None Respiratory: Reports: None Hematological: Reports: None Gastrointestinal: Reports: None Genitourinary: Reports: None Neuro/Psych: Reports: None Musculoskeletal: Reports: None Cancer: Reports: None - Surgical History General Surgical History: Reports: None - Family History Family History: Reports: None - Social History Smoking Status: Never smoker, Chews tobacco Hx Substance Use: No Alcohol Screening: None - Immunizations Tetanus Shot up to Date: No Physical Exam - Physical Exam Appearance: Well-appearing Pain Distress: Mild Eyes: SUNSHINE, EOMI, Conjunctiva clear ENT: Ears normal, Nose normal, Oropharynx normal Neck: Supple Respiratory: Airway patent, Breath sounds clear, Breath sounds equal, Respirations nonlabored, Crackles Cardiovascular: RRR, Pulses normal, No rub, No murmur GI/: Soft, Nontender, No masses, Bowel sounds normal, No Organomegaly Musculoskeletal: Normal strength, ROM intact, No edema, No calf tenderness Skin: Warm, Dry, Normal color Neurological: Sensation intact, Motor intact, Reflexes intact, Cranial nerves intact, Alert, Oriented Psychiatric: Affect appropriate, Mood appropriate Interpretation - Radiology Interpretation Radiology Interpretation By: Radiologist Radiology Results: Negative Exam Interpreted: CT Scan - EKG Interpretation Time of EKG #1: 00:10 Rate: Normal Rhythm: Sinus Ectopy: None Bypro: NL ST Segment: Normal Re-Evaluation - Re-Evaluation Time of Re-Evaluation: 00:11 Status: Improved Vital Signs Stable: Yes Pain Level: 0 Appearance: NAD Lungs: Clear Skin: Warm and Dry Neuro: Alert and Oriented X3 CV: RRR Critical Care Note - Critical Care Note Total Time (mins): 0 Course - Course Hematology/Chemistry: 01/23/19 20:41 01/23/19 20:41 Orders, Labs, Meds: Lab Review 01/23/19 01/23/19 01/23/19 20:40 20:40 20:41 WBC 9.79 RBC 4.70 Hgb 13.6 L Hct 41.3 L MCV 87.9 MCH 28.9 MCHC 32.9 RDW Coeff of Maria D 13.1 Plt Count 307 Immature Gran % (Auto) 0.3 Neut % (Auto) 54.8 Lymph % (Auto) 34.0 Andrew % (Auto) 6.7 Eos % (Auto) 3.7 Baso % (Auto) 0.5 Immature Gran # (Auto) 0.0 Neut # (Auto) 5.4 Lymph # (Auto) 3.3 Andrew # (Auto) 0.7 Eos # (Auto) 0.4 Baso # (Auto) 0.1 D-Dimer (Manual) Sodium Potassium Chloride Carbon Dioxide Anion Gap BUN Creatinine Estimated GFR (MDRD) BUN/Creatinine Ratio Glucose Hemoglobin A1c 5.73 Calcium Total Bilirubin AST ALT Alkaline Phosphatase Total Creatine Kinase Troponin I Total Protein Albumin Globulin Albumin/Globulin Ratio Amylase 74.0 Lipase 117.7 Urine Color Urine Clarity Urine pH Ur Specific [place] Urine Protein Urine Glucose (UA) Urine Ketones Urine Blood Urine Nitrite Urine Bilirubin Urine Urobilinogen Ur Leukocyte Esterase Urine Microscopic RBC Urine Microscopic WBC Ur Squamous Epith Cells Hyaline Casts Urine Mucus Urine Opiates Screen Ur Oxycodone Screen Urine Methadone Screen Ur Propoxyphene Screen Ur Barbiturates Screen U Tricyclic Antidepress Ur Phencyclidine Scrn Ur Amphetamine Screen U Methamphetamines Scrn U Benzodiazepines Scrn Urine Cocaine Screen U Cannabinoids Screen 01/23/19 01/23/19 01/23/19 20:41 20:41 20:59 WBC RBC Hgb Hct MCV MCH MCHC RDW Coeff of Maria D Plt Count Immature Gran % (Auto) Neut % (Auto) Lymph % (Auto) Andrew % (Auto) Eos % (Auto) Baso % (Auto) Immature Gran # (Auto) Neut # (Auto) Lymph # (Auto) Andrew # (Auto) Eos # (Auto) Baso # (Auto) D-Dimer (Manual) 408.79 Sodium 141.5 Potassium 3.87 Chloride 101.3 Carbon Dioxide 25.4 Anion Gap 18.67 BUN 9.1 Creatinine 0.87 Estimated GFR (MDRD) 91.00 BUN/Creatinine Ratio 10.45 Glucose 92.5 Hemoglobin A1c Calcium 9.44 Total Bilirubin 0.42 AST 35.4 ALT 32.0 Alkaline Phosphatase 61.9 Total Creatine Kinase 53.6 L Troponin I < 0.012 Total Protein 7.94 Albumin 4.89 Globulin 3.05 Albumin/Globulin Ratio 1.60 Amylase Lipase Urine Color Yellow Urine Clarity Clear Urine pH 5.5 Ur Specific [place] 1.025 Urine Protein 2+ Urine Glucose (UA) Negative Urine Ketones 1+ Urine Blood Trace-intact Urine Nitrite Negative Urine Bilirubin Negative Urine Urobilinogen 2.0 Ur Leukocyte Esterase Negative Urine Microscopic RBC 0-2 Urine Microscopic WBC 0-2 Ur Squamous Epith Cells 2-5 Hyaline Casts 0-2 Urine Mucus Trace Urine Opiates Screen Ur Oxycodone Screen Urine Methadone Screen Ur Propoxyphene Screen Ur Barbiturates Screen U Tricyclic Antidepress Ur Phencyclidine Scrn Ur Amphetamine Screen U Methamphetamines Scrn U Benzodiazepines Scrn Urine Cocaine Screen U Cannabinoids Screen 01/23/19 20:59 WBC RBC Hgb Hct MCV MCH MCHC RDW Coeff of Maria D Plt Count Immature Gran % (Auto) Neut % (Auto) Lymph % (Auto) Andrew % (Auto) Eos % (Auto) Baso % (Auto) Immature Gran # (Auto) Neut # (Auto) Lymph # (Auto) Andrew # (Auto) Eos # (Auto) Baso # (Auto) D-Dimer (Manual) Sodium Potassium Chloride Carbon Dioxide Anion Gap BUN Creatinine Estimated GFR (MDRD) BUN/Creatinine Ratio Glucose Hemoglobin A1c Calcium Total Bilirubin AST ALT Alkaline Phosphatase Total Creatine Kinase Troponin I Total Protein Albumin Globulin Albumin/Globulin Ratio Amylase Lipase Urine Color Urine Clarity Urine pH Ur Specific [place] Urine Protein Urine Glucose (UA) Urine Ketones Urine Blood Urine Nitrite Urine Bilirubin Urine Urobilinogen Ur Leukocyte Esterase Urine Microscopic RBC Urine Microscopic WBC Ur Squamous Epith Cells Hyaline Casts Urine Mucus Urine Opiates Screen Negative Ur Oxycodone Screen Negative Urine Methadone Screen Negative Ur Propoxyphene Screen Negative Ur Barbiturates Screen Negative U Tricyclic Antidepress Negative Ur Phencyclidine Scrn Negative Ur Amphetamine Screen Negative U Methamphetamines Scrn Negative U Benzodiazepines Scrn Negative Urine Cocaine Screen Negative U Cannabinoids Screen Negative Orders Category Date Time Status EKG-(ED ONLY) Stat CARDIO 01/23/19 20:27 Completed ACCUCHECK (ED) [ED ACCUCHECK ASSESSMENT] .ONCE EMERGENCY 01/23/19 23:30 Active ED IV/MEDIPORT/POWERPORT .ONCE EMERGENCY 01/23/19 20:27 Active AMYLASE Stat LAB 01/23/19 20:40 Completed CBC W/ AUTO DIFF Stat LAB 01/23/19 20:41 Completed COMPREHENSIVE METABOLIC PANEL Stat LAB 01/23/19 20:41 Completed CREATINE KINASE Stat LAB 01/23/19 20:41 Completed D-DIMER Stat LAB 01/23/19 20:41 Completed HEMOGLOBIN A1C Routine LAB 01/23/19 20:40 Completed LIPASE Stat LAB 01/23/19 20:40 Completed TROPONIN I Stat LAB 01/23/19 20:41 Completed UA [URINALYSIS C & S IF INDICATED] Stat LAB 01/23/19 20:59 Completed URINE DRUG SCREEN (RAPID FOR ED) [DRUG SCREEN, URINE, LAB 01/23/19 20:59 Completed RAPID] Stat 0.9 % Sodium Chloride [Saline Flush] MEDS 01/23/19 20:27 Ordered 1 syr IVF PRN PRN Dextrose 50 % in Water [Dextrose 50%-Water Abboject] MEDS 01/23/19 23:38 Discontinued 50 ml .ROUTE .STK-MED ONE Dextrose 50 % in Water [Dextrose 50%-Water Abboject] MEDS 01/23/19 23:40 Discontinued 50 ml IVP ONCE STA Enalaprilat Dihydrate [Vasotec IV] MEDS 01/23/19 22:56 Discontinued 1.25 mg IVP ONCE STA Morphine Sulfate [Morphine 2 mg/ml Syringe] MEDS 01/23/19 22:23 Discontinued 2 mg IVP ONCE STA Ondansetron HCl/Pf [Zofran 4 mg/2 ml] MEDS 01/23/19 22:23 Discontinued 4 mg IVP ONCE STA CT ABDOMEN/PELVIS WO CONTRAST Stat RADS 01/23/19 21:[address] HEAD W/O CONTRAST Stat RADS 01/23/19 20:28 Completed CXR [CHEST, 1V AP ONLY] Stat RADS 01/23/19 20:28 Completed Medications Generic Name Dose Route Start Last Admin Trade Name Freq PRN Reason Stop Dose Admin Sodium Chloride 1 syr 01/23/19 20:27 01/23/19 23:00 Saline Flush IVF 1 syr PRN PRN Administration To flush IV Discontinued Medications Generic Name Dose Route Start Last Admin Trade Name Freq PRN Reason Stop Dose Admin Dextrose 50 ml 01/23/19 23:40 01/23/19 23:41 Dextrose 50%-Water Abboject IVP 01/23/19 23:41 50 ml ONCE STA Administration Enalaprilat 1.25 mg 01/23/19 22:56 01/23/19 23:00 Vasotec Iv IVP 01/23/19 22:57 1.25 mg ONCE STA Administration Morphine Sulfate 2 mg 01/23/19 22:23 01/23/19 22:28 Morphine 2 Mg/Ml Syringe IVP 01/23/19 22:24 2 mg ONCE STA Administration Ondansetron HCl 4 mg 01/23/19 22:23 01/23/19 22:29 Zofran 4 Mg/2 Ml IVP 01/23/19 22:24 4 mg ONCE STA Administration Vital Signs: Temp Pulse Resp BP Pulse Ox 01/23/19 23:34 157/93 H 01/23/19 22:56 156/95 H 01/23/19 21:45 173/101 H 01/23/19 21:19 171/103 H 01/23/19 21:11 73 159/96 H 01/23/19 21:04 160/101 H 01/23/19 20:26 99.4 F 78 16 187/107 H 96 Departure - Departure Time of Disposition: 00:11 Disposition: HOME SELF-CARE Discharge Problem: Hypoglycemia Instructions: Hypoglycemia in a Person with Diabetes (ED), What to Do if Your Blood Sugar is Low (ED) Condition: Good Pt referred to PMD for follow-up: Yes IPMP verified?: No Additional Instructions: reduce the insulin to 10units q am only---continue metformin----see me next saturday in the office Allergies/Adverse Reactions: Allergies No Known Drug Allergies Allergy (Verified 01/23/19 20:55) Home Medications: Ambulatory Orders Aspirin [Aspirin Chewable] 81 mg PO DAILY 04/05/13 Insulin Detemir [Levemir Flexpen] 40 unit SQ BID 04/05/13 Metformin HCl [Metformin HCl ER] 500 mg PO DAILY 04/05/13 Metoprolol Tartrate [Lopressor] 25 mg PO DAILY 04/05/13 Multivitamin 1 cap PO DAILY 04/05/13 Allopurinol 100 mg PO DAILY 04/06/13 Metformin HCl 1,000 mg PO BID 10/04/13 Ibuprofen [Motrin] 600 mg PO Q6H PRN #30 tablet 12/21/17 Disposition Discussed With: Patient, Family
[2019-01-24 00:13] VITALS: BP 143/88
== END 2019-01-24 00:16 | disposition home or self-care (01) ==
LOC: ED 20:25
DX: R53.1 Weakness (principal); R61 Generalized hyperhidrosis; E16.2 Hypoglycemia, unspecified
CPT/HCPCS: 36415; 80053; 80306; 81001; 82150; 82550; 82962; 83036; 83690; 84484; 85025; 85379; 93005; 93010; 96374; 96375; 99284

== ENCOUNTER 2019-04-29 16:56 | Emergency (ER) ==
[2019-04-29 17:04] VITALS: BP 165/93; TEMP 98.1; BMI 30.5
--- NOTE | 2019-04-29 18:23 | ED.PDOC ---
General ED Provider: Dr. SHONA CANDELARIA Chief Complaint: Fall Stated Complaint: fall head and neck pain possible back pain Time Seen by Physician: 17:00 Mode of Arrival: Walk-In Information Source: Patient Exam Limitations: No limitations Primary Care Provider: [place] [facility] Nursing and Triage Documentation Reviewed and Agree: Yes Does patient meet sepsis criteria?: No If yes, has appropriate treatment been initiated?: No System Inflammatory Response Syndrome: Not Applicable Sepsis Protocol: For patient's 13 years and over: Temp is 96.8 and below OR 101 and greater Pulse >90 BPM Resp >20/minute Acutely Altered Mental Status Are patient's symptoms suggestive of a new infection, such as: -Pneumonia -Skin, Soft Tissue -Endocarditis -UTI -Bone, Joint Infection -Implantable Device -Acute Abdominal Infection -Wound Infection -Meningitis -Blood Stream Catheter Infection -Unknown Trauma/Injury Complaint Exam - Trauma Complaint/Exam Location of Pain or Injury: Reports: Head, Neck, Back Mechanism of Injury: Reports: Fall Symptoms Are: Still present Timing of Treatment: Immediate Initial Severity: Moderate Current Severity: Mild Character: Reports: Aching Aggravating: Reports: Movement Alleviating: Reports: Rest Associated Signs and Symptoms: Denies: LOC, Confusion, Memory loss, Lethargy, Vomiting, Bleeding, Bruising, Swelling, Extremity disuse, Painful respiration, Hoarseness, Dysphagia, Hemoptysis, Significant blood loss Penetrating Injury Risk Factors: Reports: None Nexus Low Risk Criteria: No evidence of intoxicat., No Altered LOC, No focal neuro deficit, No distracting injuries Glascow Coma Scale (see protocol): 15 Review of Systems - Review Of Systems Constitutional: Reports: No symptoms Eyes: Reports: No symptoms Ears, Nose, Mouth, Throat: Reports: No symptoms Respiratory: Reports: No symptoms Cardiac: Reports: No symptoms GI: Reports: No symptoms : Reports: No symptoms Musculoskeletal: Reports: Back pain, Muscle stiffness Skin: Reports: No symptoms Neurological: Reports: Headache Endocrine: Reports: No symptoms Hematologic/Lymphatic: Reports: No symptoms All Other Systems: Reviewed and Negative Past Medical History - Past Medical History Previously Healthy: Yes Endocrine: Reports: None Cardiovascular: Reports: None Respiratory: Reports: None Hematological: Reports: None Gastrointestinal: Reports: None Genitourinary: Reports: None Neuro/Psych: Reports: None Musculoskeletal: Reports: None Cancer: Reports: None - Surgical History General Surgical History: Reports: None - Family History Family History: Reports: None - Social History Smoking Status: Never smoker, Chews tobacco Hx Substance Use: No Alcohol Screening: None Physical Exam - Physical Exam Appearance: Well-appearing, No pain distress, Well-nourished Eyes: SUNSHINE, EOMI, Conjunctiva clear ENT: Ears normal, Nose normal, Oropharynx normal Respiratory: Airway patent, Breath sounds clear, Breath sounds equal, Respirations nonlabored Cardiovascular: RRR, Pulses normal, No rub, No murmur GI/: Soft, Nontender, No masses, Bowel sounds normal, No Organomegaly Musculoskeletal: Normal strength, ROM intact, No edema, No calf tenderness Skin: Warm, Dry, Normal color Neurological: Sensation intact, Motor intact, Reflexes intact, Cranial nerves intact, Alert, Oriented Psychiatric: Affect appropriate, Mood appropriate Interpretation - Radiology Interpretation Radiology Interpretation By: Radiologist Radiology Results: No acute changes Re-Evaluation - Re-Evaluation Time of Re-Evaluation: 18:22 Status: Improved Vital Signs Stable: Yes Pain Level: 2 Appearance: NAD Lungs: Clear Skin: Warm and Dry Neuro: Alert and Oriented X3 CV: RRR Critical Care Note - Critical Care Note Total Time (mins): 0 Course - Course Orders, Labs, Meds: Orders Category Date Time Status EKG-(ED ONLY) Stat CARDIO 04/29/19 17:39 Ordered CBC W/ AUTO DIFF Stat LAB 04/29/19 17:39 Ordered COMPREHENSIVE METABOLIC PANEL Stat LAB 04/29/19 17:39 Ordered CREATINE KINASE Stat LAB 04/29/19 18:17 Received TROPONIN I Stat LAB 04/29/19 18:[address] CERVICAL SPINE W/O CONTRAST Stat RADS 04/29/19 17:[address] CHEST W/O CONTRAST Stat RADS 04/29/19 17:[address] HEAD W/O CONTRAST Stat RADS 04/29/19 17:[address] LUMBAR SPINE W/O CONTRAST Stat RADS 04/29/19 17:[address] PELVIS W/O CONTRAST Stat RADS 04/29/19 17:[address] THORACIC SPINE W/O CONTRAST Stat RADS 04/29/19 17:38 Ordered Vital Signs: Temp Pulse Resp BP Pulse Ox 04/29/19 16:58 98.1 F 70 16 165/93 H 96 Departure - Departure Time of Disposition: 19:00 Disposition: HOME SELF-CARE Discharge Problem: Headache Qualifiers: Headache type: unspecified Headache chronicity pattern: unspecified pattern Instructions: Head Injury (ED) Condition: Good Pt referred to PMD for follow-up: Yes IPMP verified?: No Additional Instructions: Please call your Family Physician as soon as possible to schedule a follow-up appointment. Allergies/Adverse Reactions: Allergies No Known Drug Allergies Allergy (Verified 04/29/19 17:00) Home Medications: Ambulatory Orders Aspirin [Aspirin Chewable] 81 mg PO DAILY 04/05/13 Insulin Detemir [Levemir Flexpen] 20 unit SQ BID 04/05/13 Metformin HCl [Metformin HCl ER] 500 mg PO DAILY 04/05/13 Metoprolol Tartrate [Lopressor] 25 mg PO DAILY 04/05/13 Multivitamin 1 cap PO DAILY 04/05/13 Allopurinol 100 mg PO DAILY 04/06/13 Metformin HCl 1,000 mg PO BID 10/04/13 Disposition Discussed With: Patient
--- NOTE | 2019-04-29 18:30 | CT ---
Exam: Head CT. Date: 04/29/2019. Comparison: 01/23/2019. HISTORY: Fell. TECHNIQUE: The helical scan of the brain was performed. FINDINGS: The calvarium is intact. The paranasal sinuses and mastoid air cells are clear. 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 Areas of encephalomalacia are also seen in the right frontal and temporal lobes as before. No new abnormal intra or extra-axial fluid, mass or mass effect is present. There is no midline shift or hydrocephalus. No new large vessel infarct or hemorrhage is observed. Shaw-white interface is maintained. Impression: No acute findings and no significant change from 01/23/2019. 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 Chronic small vessel disease.
--- NOTE | 2019-04-29 18:31 | CT ---
Exam: CT scan of the thoracic spine. Date: 04/29/2019. Comparison: 09/16/2017. HISTORY: Fell. TECHNIQUE: Helical scan of the thoracic spine was performed. FINDINGS: There are 12 rib-bearing vertebral bodies and the alignment is normal. Vertebral body hei ghts are maintained at all levels. No spondylolysis or spondylolisthesis is seen. Minor multilevel endplate degenerative changes are present. There is no significant impression upon the thecal sac or cord at any level. Impression: No acute osseous abnormality in the thoracic spine.
--- NOTE | 2019-04-29 18:32 | CT ---
EXAM: CT cervical spine without intravenous contrast 04/29/2019. Sagittal and coronal reformatted i mages obtained HISTORY: Fall COMPARISON: 06/30/2018 FINDINGS: Normal anatomic alignment is maintained. Vertebral bodies appear intact without fracture. The facet joints align normally Chronic degenerative disc disease. Chronic degenerative endplate changes. Bulky anterior osteophyte formation. Multilevel posterior disc bulge/osteophyte formation. There is no fracture or subluxation at any level. IMPRESSION: Chronic degenerative findings. There is no acute osseous abnormality of the cervical sp ine.
--- NOTE | 2019-04-29 18:35 | CT ---
Exam: CT scan of the lumbar spine. Date: 04/29/2019. Comparison: 09/16/2017. HISTORY: Fell. TECHNIQUE: Helical scan of the lumbar spine was performed. FINDINGS: There are five lumbar vertebral bodies in alignment is normal. Degenerative changes prese nt from L1-L3. The vertebral body heights are maintained at all levels. No spondylolysis or spondyl olisthesis is seen. There are stable subtle areas of decreased attenuation involving the L2, L3 and L4 vertebral bodies that may represent hemangiomas. Segmental analysis: T12-L1: No abnormalities are seen. L1-2: No abnormalities are seen. L2-3: No abnormalities are seen. L3-4: There is a right paramidline disc/osteophyte complex causing right lateral impression upon the thecal sac and mild right neural foraminal narrowing. The canal diameter exceeds 1 cm. L4-5: There is diffuse disc bulge causing impression upon the thecal sac and cord. The canal diamet er exceeds 1 cm. There is mild bilateral neural foraminal narrowing from facet ligament flavum hyper trophy. L5-S1: There is no significant impression upon the thecal sac. There is moderate right neural anil inal narrowing from osteophytic spurring. Impression: No acute osseous abnormality in the lumbar spine with degenerative changes at the levels as described above.
--- NOTE | 2019-04-29 18:35 | CT ---
Exam: CT pelvis without contrast Date: 04/29/2019 Comparison: CT abdomen pelvis 01/23/2019 History: Patient fell. TECHNIQUE: Axial CT images through the pelvis were obtained without IV contrast. Multiplanar recons tructed images were obtained. FINDINGS: No acute fracture or dislocation. Enthesiopathy is scattered throughout the bony pelvis. Impression: No acute bony abnormality.
--- NOTE | 2019-04-29 18:38 | CT ---
Exam: CT scan of the thorax without contrast. Date: 04/29/2019. Comparison: None. HISTORY: Fell. TECHNIQUE: Helical scan of the thorax was performed without contrast. FINDINGS: The thoracic inlet and axillary regions are normal. No suspicious mediastinal adenopathy is seen. Caliber of the thoracic aorta and cardiac chambers are normal. The spleen and liver have a uniform attenuation although the attenuation of the liver is as low as 35 Hounsfield units. The sto mach and pancreas are normal. Cholecystectomy is noted. The adrenal glands and upper poles of the k idneys appear normal. No acute osseous abnormalities are seen with multilevel degenerative changes in the thoracic spine. Evaluation at lung window settings does not demonstrate any suspicious pulmonary nodules, pleural flu id or consolidation. Tracheobronchial tree is patent. Impression: No acute intrathoracic findings. Hepatic steatosis. Cholecystectomy.
== END 2019-04-29 19:01 | disposition home or self-care (01) ==
LOC: ED 16:56
DX: R51 Headache (principal); M54.2 Cervicalgia; M54.9 Dorsalgia, unspecified; W19.XXXA Unspecified fall, initial encounter; Z72.0 Tobacco use
CPT/HCPCS: 36415; 80053; 82550; 84484; 85025; 93005; 93010; 99283